=== PATIENT | female | born 1950 | race Caucasian/White ===

== ENCOUNTER 2018-05-18 03:49 | Inpatient (IN) ==
[2018-05-18] MEDS ORDERED: 0.9 % Sodium Chloride 1,000 ML IVC ONE (04:33)
[2018-05-18] MEDS ORDERED: *HR* Promethazine 25 MG/ML VIAL IVP ONE (04:33)
--- NOTE | 2018-05-18 04:37 | Emergency Department Note ---
Disposition Clinical Impression: Dizziness, Electrolyte abnormality, Elevated troponin Disposition: Admitted As Inpatient Condition: Fair Referrals: Quintin Lowry MD [Primary Care Provider] - Forms: ED Satisfaction Letter Time of Disposition: 07:42 General Adult HPI - General Chief complaint: ED Nausea/Vomiting/Diarrhea Stated complaint: n/v, dizzy Time Seen by Provider: 05/18/18 03:53 Source: patient Mode of arrival: ambulatory Limitations: no limitations Nursing Notes Reviewed: Yes Vital Signs Reviewed: Yes - History of Present Illness HPI Narrative: Patient is a 67-year-old female with a past medical history of diabetes, hypertension, and 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 The patient states her symptoms started 2 weeks ago when she was having multiple episodes of encounter urine where she was trying to make it to the restroom and could not make it there and time. She was initially seen at this ER in [place] and diagnosed with UTI and started on Bactrim. One week ago her symptoms were not improving since she is seen by her primary care physician and she was switched to doxycycline. The patient states that her urinary symptoms have improved since then, however she states that she has not been able to keep any food down since Tuesday. She states that she has had multiple episodes of emesis that are nonbloody and nonbilious. She denies any fevers, chills, chest pain, shortness of breath, abdominal pain, flank pain or diarrhea. She has a description 38 Shar[address] Mendez at home this medication as been unsuccessful in treating her nausea and vomiting. States she thinks she just needs hydration and her nausea fixed. Pain Scale: 8 - Related Data Home Medications Medication Instructions Recorded Confirmed Furosemide [Lasix] 20 mg PO DAILY 01/31/16 05/18/18 Ustekinumab [STELARA (For 90 mg SQ Q90D 01/31/16 05/18/18 Outpatient Infusion)] Venlafaxine HCl [Venlafaxine HCl 37.5 mg PO DAILY 01/31/16 05/18/18 ER] Rosuvastatin Calcium [Crestor] 10 mg PO DAILY 07/21/16 05/18/18 Cranberry Conc/Ascorbic Acid 1 each PO DAILY 08/30/16 05/18/18 [Cranberry Plus Vitamin C Sftgl] Denosumab [Prolia (For Outpatient 60 mg IV Q180D 10/17/16 07/05/18 Infusion)] Ergocalciferol (VITAMIN D2) 800 unit PO DAILY 08/30/16 05/18/18 [Vitamin D] Multivit-Minerals/Folic/Ginkgo 1 each PO DAILY 08/30/16 05/18/18 [One Daily For Women 50+ Adv Tb] [place]-3 Fatty Acids [Fish Oil] 900 mg PO DAILY 08/30/16 05/18/18 Allopurinol [Zyloprim 100 MG] 100 mg PO DAILY 05/18/18 05/18/18 Doxycycline Hyclate [Vibramycin] 100 mg PO BID 05/18/18 05/18/18 Metoprolol Succinate [Toprol Xl] 25 mg PO DAILY 05/18/18 05/18/18 Ondansetron ODT [Zofran ODT] 4 mg SL Q8HR 05/18/18 05/18/18 Previous Rx's Medication Instructions Recorded Acetaminophen [Tylenol] 325 mg PO Q6HR PRN #10 tablet 11/15/16 Fluticasone Propionate Nasal 2 spray NS DAILY #1 bottle 11/15/16 [Flonase] Allergies Allergy/AdvReac Type Severity Reaction Status Date / Time No Known Allergies Allergy Verified 05/18/18 03:52 All systems ED: reviewed and negative except as stated. Review of Systems: As Per HPI Constitutional: Denies: fever, chills Cardiovascular: Denies: chest pain, palpitations Respiratory: Denies: cough, dyspnea, wheezes Gastrointestinal: Reports: nausea, vomiting. Denies: abdominal pain, diarrhea, constipation, hematemesis, melena Genitourinary: Denies: urgency, dysuria, frequency, hematuria Past Medical History - Past Medical History Attestation: Yes The following information was validated with the patient. Medical history: Reports: osteoporosis Surgical history: Reports: hysterectomy Psychiatric history: Reports: depression - Social History Smoking Status: Never smoker Smokeless Tobacco Status: No Alcohol use: Reports: none Drug use: Reports: none Physical Exam CONSTITUTIONAL: Well-appearing; well-nourished; A&O X 3, in no apparent distress. Patient is borderline hypotensive in the systolic 110s. Other vitals are within normal limits. HEAD: Normocephalic; atraumatic EYES: PERRL, no scleral icterus NOSE: The nose is normal in appearance without rhinorrhea NECK: No JVD or distended neck veins RESP: Normal chest excursion with respiration; breath sounds clear and equal bilaterally; no wheezes, rhonchi, or rales CARD: Regular rhythm, without murmurs, rub or gallop ABD: Non-distended; non-tender, soft, without rigidity, rebound or guarding,no pulsatile mass CHEST: No pain with palpation SKIN: Normal for age and race; warm and dry without diaphoresis ; no apparent lesions EXTREMITIES: Pulses are 2 plus and equal times 4 extremities, no peripheral edema or calf muscle pain - General Limitations: no limitations General appearance: alert, in no apparent distress Course Course Narrative: Plan is times work the patient up for generalized weakness associated with nausea and vomiting. We will perform a cardiac workup including a chest x-ray, EKG and troponin. We will also check baseline labs for lateral at abnormalities and as well as urine determine her urinary tract infection assess Singh being treated. Patient also received IV hydration as well as IV antiemetic while waiting for lab results Reevaluate the patient. - Reevaluation(s) Reevaluation #1: Patient's symptoms improved with the Antivert and Valium. She had potassium replacement while in the ED plan is to admit her to the hospitalist for further fluids and treatment of her a And trending of her troponin. I discussed this with the hospitalist on-call he agrees. Time: 07:42 Vital Signs Temperature 97.8 F 05/18/18 03:50 Pulse Rate 87 05/18/18 03:50 Respiratory Rate 20 05/18/18 03:50 Blood Pressure 93/62 05/18/18 03:50 O2 Sat by Pulse Oximetry 96 05/18/18 03:50 Temperature 97.8 F 05/18/18 03:50 Pulse Rate 74 05/18/18 07:04 Respiratory Rate 16 05/18/18 07:04 Blood Pressure 130/57 05/18/18 07:04 O2 Sat by Pulse Oximetry 98 05/18/18 07:04 Oxygen Delivery Oxygen Delivery Room Air Medical Decision Making - Medical Records Medical records reviewed: Yes I reviewed the patient's medical records. - Lab Data Lab results reviewed: Yes I reviewed the patient's lab results. Result diagrams: 05/18/18 06:05 05/18/18 04:06 Lab Results 05/18/18 05/18/18 05/18/18 Range/Units 04:06 04:06 04:06 WBC (4.3-11.1) K/mcL RBC (3.82-4.97) M/mcL Hgb (11.5-15.4) g/dL Hct (35.3-44.9) % MCV (83.0-100.0) fL MCH (28.0-33.3) pg MCHC (31.6-35.5) g/dL RDW (11.5-14.5) % Plt Count (140-400) K/mcL MPV (9.4-12.4) fL Immature Gran % (0-4) % Seg Neutrophils % % Lymphocytes % % Monocytes % % Eosinophils % % Basophils % % Neutrophils # (1.6-8.9) K/mcL Lymphocytes # (0.6-4.6) K/mcL Monocytes # (0.0-1.3) K/mcL Eosinophils # (0.0-0.6) K/mcL Basophils # (0.0-0.2) K/mcL Immature Plt Fraction (1.1-6.1) % Sodium 128 L (136-145) mEq/L Potassium 3.0 L (3.5-5.1) mEq/L Chloride 92 L (98-107) mEq/L Carbon Dioxide 23 (23-29) mEq/L BUN 51 H (8-23) mg/dL Creatinine 3.77 H (0.60-1.20) mg/dL Est GFR ( Amer) 14 L (> 60) Est GFR (Non-Af Amer) 12 L (> 60) BUN/Creatinine Ratio 14 (6-26) Glucose 155 H (70-105) mg/dL Calculated Osmolality 283 (280-300) Calcium 9.4 (8.6-10.3) mg/dL Total Bilirubin 0.7 (0.3-1.0) mg/dL AST 120 H (13-39) Units/L ALT 121 H (7-52) Units/L Alkaline Phosphatase 72 (34-104) Units/L Troponin I 0.06 H* (< 0.04) ng/mL Serum Total Protein 6.5 (6.4-8.9) g/dL Albumin 4.1 (3.5-5.7) g/dL Globulin 2.4 (2.4-3.5) g/dL Albumin/Globulin Ratio 1.7 (1.1-2.2) Lipase 127 H (11-82) Units/L Urine Color (Yellow) Urine Clarity (Clear) Urine pH (5.0-8.0) pH Units Ur Specific [place] (1.010-1.025) Urine Protein (Neg-Trace) mg/dL Urine Glucose (UA) (Normal) mg/dL Urine Ketones (Negative) mg/dL Urine Blood (Negative) Urine Nitrite (Negative) Urine Bilirubin (Negative) Urine Urobilinogen (Normal) mg/dL Ur Leukocyte Esterase (Negative) Urine Microscopic RBC (0-3) per hpf Urine Microscopic WBC (0-3) per hpf Ur Squamous Epith Cells (None-Few) per lpf Ur Transition Epith Cell (None-Few) per hpf Ur Renal Epithelial Cell (None-Few) per hpf Urine Bacteria (None-Few) per hpf Hyaline Casts (None-Few) per lpf Ur Culture Indicated? (NO) Specimen Rejected MCV [place] 05/18/18 05/18/18 Range/Units 04:51 06:05 WBC 6.7 (4.3-11.1) K/mcL RBC 3.73 L (3.82-4.97) M/mcL Hgb 11.7 (11.5-15.4) g/dL Hct 33.2 L (35.3-44.9) % MCV 89.0 D (83.0-100.0) fL MCH 31.4 (28.0-33.3) pg MCHC 35.2 (31.6-35.5) g/dL RDW 13.9 (11.5-14.5) % Plt Count 70 L (140-400) K/mcL MPV 12.9 H (9.4-12.4) fL Immature Gran % 0.4 (0-4) % Seg Neutrophils % 54.0 % Lymphocytes % 31.6 % Monocytes % 7.9 % Eosinophils % 5.5 % Basophils % 0.6 % Neutrophils # 3.6 (1.6-8.9) K/mcL Lymphocytes # 2.1 (0.6-4.6) K/mcL Monocytes # 0.5 (0.0-1.3) K/mcL Eosinophils # 0.4 (0.0-0.6) K/mcL Basophils # 0.0 (0.0-0.2) K/mcL Immature Plt Fraction 12.9 H (1.1-6.1) % Sodium (136-145) mEq/L Potassium (3.5-5.1) mEq/L Chloride (98-107) mEq/L Carbon Dioxide (23-29) mEq/L BUN (8-23) mg/dL Creatinine (0.60-1.20) mg/dL Est GFR ( Amer) (> 60) Est GFR (Non-Af Amer) (> 60) BUN/Creatinine Ratio (6-26) Glucose (70-105) mg/dL Calculated Osmolality (280-300) Calcium (8.6-10.3) mg/dL Total Bilirubin (0.3-1.0) mg/dL AST (13-39) Units/L ALT (7-52) Units/L Alkaline Phosphatase (34-104) Units/L Troponin I (< 0.04) ng/mL Serum Total Protein (6.4-8.9) g/dL Albumin (3.5-5.7) g/dL Globulin (2.4-3.5) g/dL Albumin/Globulin Ratio (1.1-2.2) Lipase (11-82) Units/L Urine Color Yellow (Yellow) Urine Clarity Cloudy A (Clear) Urine pH 5.5 (5.0-8.0) pH Units Ur Specific [place] 1.019 (1.010-1.025) Urine Protein 30 H (Neg-Trace) mg/dL Urine Glucose (UA) Normal (Normal) mg/dL Urine Ketones Negative (Negative) mg/dL Urine Blood Negative (Negative) Urine Nitrite Negative (Negative) Urine Bilirubin Negative (Negative) Urine Urobilinogen Normal (Normal) mg/dL Ur Leukocyte Esterase Negative (Negative) Urine Microscopic RBC 0-3 (0-3) per hpf Urine Microscopic WBC 5-15 H (0-3) per hpf Ur Squamous Epith Cells Many H (None-Few) per lpf Ur Transition Epith Cell Few (None-Few) per hpf Ur Renal Epithelial Cell Few (None-Few) per hpf Urine Bacteria None Seen (None-Few) per hpf Hyaline Casts None Seen (None-Few) per lpf Ur Culture Indicated? NO (NO) Specimen Rejected - Radiology Data Radiology results reviewed: Yes I reviewed the patient's radiology results. Chest X-Ray 05/18/18 04:34 IMPRESSION: No acute findings. D/ / Walter Del Toro / Walter Del Toro Interpreting Provider: Walter Del Toro Head CT 05/18/18 05:32 IMPRESSION: No acute intracranial abnormality. D/ / Walter Del Toro / Walter Del Toro Interpreting Provider: Walter Del Toro - EKG Data EKG #1 EKG attestation: Yes I reviewed and interpreted this EKG. EKG results narrative: EKG done at 4:00 shows sinus rhythm at a rate of 83 bpm. Normal axis. No signs of ST elevation, ST depression or Q waves present. Patient does have nonspecific ST and T-wave abnormalities in lead aVL which is seen on old EKG done on 11/03/2011.
[2018-05-18 05:03] LABS: Bilirubin,Urine Negative (Negative); Blood,Urine Negative (Negative); Clarity,Urine Cloudy (Clear); Color,Urine Yellow (Yellow); Glucose,Urine (UA) Normal (Normal); Ketones,Urine Negative (Negative); Leukocyte Esterase,Urine Negative (Negative); Nitrite,Urine Negative (Negative); PH,Urine 5.5 pH Units (5.0-8.0); Protein,Urine 30 mg/dL (Neg-Trace); Specific Gravity,Urine 1.019 (1.010-1.025); Urobilinogen,Urine Normal (Normal)
[2018-05-18 05:04] LABS: Bacteria,Urine None Seen per hpf (None-Few); Hyaline Casts,Urine None Seen per lpf (None-Few); Squamous Epithelial Cell,Urine Many per lpf (None-Few)
[2018-05-18 05:07] LABS: Albumin 4.1 g/dL (3.5-5.7); Albumin/Globulin Ratio 1.7 (1.1-2.2); Bilirubin,Total 0.7 mg/dL (0.3-1.0); Calcium 9.4 mg/dL (8.6-10.3); Globulin 2.4 g/dL (2.4-3.5); Total Protein 6.5 g/dL (6.4-8.9)
[2018-05-18] MEDS ORDERED: Potassium Chloride Elixir 20 MEQ/15 ML UDC PO ONE ×2 (05:11→12:00)
[2018-05-18 05:14] LABS: RBC,Urine 0-3 per hpf (0-3); Renal Epithelial Cells,Urine Few per hpf (None-Few); Transitional Epi Cells,Urine Few per hpf (None-Few)
[2018-05-18] MEDS ORDERED: diazePAM 10 MG/2 ML SYRINGE IVP STA (05:39)
[2018-05-18] MEDS ORDERED: Ondansetron Oral Soln 2 MG/2.5 ML ORAL.SYG PO ONE (06:02)
[2018-05-18 06:12] LABS: Basophils % 0.6 %; Eosinophils # 0.4 K/mcL (0.0-0.6); Eosinophils % 5.5 %; Hematocrit 33.2 % (35.3-44.9); Hemoglobin 11.7 g/dL (11.5-15.4); Immature Granulocytes % 0.4 % (0-4); Immature Platelets 12.9 % (1.1-6.1); Lymphocytes # 2.1 K/mcL (0.6-4.6); Lymphocytes % 31.6 %; Mean Corpuscular HGB Conc 35.2 g/dL (31.6-35.5); Mean Corpuscular Hemoglobin 31.4 pg (28.0-33.3); Mean Platelet Volume 12.9 fL (9.4-12.4); Monocytes # 0.5 K/mcL (0.0-1.3); Monocytes % 7.9 %; Neutrophils # 3.6 K/mcL (1.6-8.9); Red Blood Count 3.73 M/mcL (3.82-4.97); Red Cell Distribution Width 13.9 % (11.5-14.5)
[2018-05-18 06:20] LABS: Platelet Count 70 K/mcL (140-400)
--- NOTE | 2018-05-18 07:19 | Emergency Department Note ---
Disposition Clinical Impression: Dizziness, Electrolyte abnormality, Elevated troponin Disposition: Admitted As Inpatient Condition: Fair Referrals: Quintin Lowry MD [Primary Care Provider] - Forms: ED Satisfaction Letter General Adult HPI - General Chief complaint: ED Nausea/Vomiting/Diarrhea Stated complaint: n/v, dizzy Time Seen by Provider: 05/18/18 03:53 Source: patient Mode of arrival: ambulatory Limitations: no limitations Nursing Notes Reviewed: Yes Vital Signs Reviewed: Yes - History of Present Illness Pain Scale: 8 - Related Data Home Medications Medication Instructions Recorded Confirmed Furosemide [Lasix] 20 mg PO DAILY 01/31/16 05/18/18 Ustekinumab [STELARA (For 90 mg SQ Q90D 01/31/16 05/18/18 Outpatient Infusion)] Venlafaxine HCl [Venlafaxine HCl 37.5 mg PO DAILY 01/31/16 05/18/18 ER] Rosuvastatin Calcium [Crestor] 10 mg PO DAILY 07/21/16 05/18/18 Cranberry Conc/Ascorbic Acid 1 each PO DAILY 08/30/16 05/18/18 [Cranberry Plus Vitamin C Sftgl] Denosumab [Prolia (For Outpatient 60 mg IV Q180D 08/30/16 05/18/18 Infusion)] Ergocalciferol (VITAMIN D2) 800 unit PO DAILY 08/30/16 05/18/18 [Vitamin D] Multivit-Minerals/Folic/Ginkgo 1 each PO DAILY 08/30/16 05/18/18 [One Daily For Women 50+ Adv Tb] [place]-3 Fatty Acids [Fish Oil] 900 mg PO DAILY 08/30/16 05/18/18 Allopurinol [Zyloprim 100 MG] 100 mg PO DAILY 05/18/18 05/18/18 Doxycycline Hyclate [Vibramycin] 100 mg PO BID 05/18/18 05/18/18 Metoprolol Succinate [Toprol Xl] 25 mg PO DAILY 05/18/18 05/18/18 Ondansetron ODT [Zofran ODT] 4 mg SL Q8HR 05/18/18 05/18/18 Previous Rx's Medication Instructions Recorded Acetaminophen [Tylenol] 325 mg PO Q6HR PRN #10 tablet 11/15/16 Fluticasone Propionate Nasal 2 spray NS DAILY #1 bottle 11/15/16 [Flonase] Allergies Allergy/AdvReac Type Severity Reaction Status Date / Time No Known Allergies Allergy Verified 05/18/18 03:52 Constitutional: Denies: fever, chills Cardiovascular: Denies: chest pain, palpitations Respiratory: Denies: cough, dyspnea, wheezes Gastrointestinal: Reports: nausea, vomiting. Denies: abdominal pain, diarrhea, constipation, hematemesis, melena Genitourinary: Denies: urgency, dysuria, frequency, hematuria Past Medical History - Past Medical History Medical history: Reports: osteoporosis Surgical history: Reports: hysterectomy Psychiatric history: Reports: depression - Social History Smoking Status: Never smoker Smokeless Tobacco Status: No Alcohol use: Reports: none Drug use: Reports: none Physical Exam - General Limitations: no limitations General appearance: alert, in no apparent distress Course Vital Signs Temperature 97.8 F 05/18/18 03:50 Pulse Rate 87 05/18/18 03:50 Respiratory Rate 20 05/18/18 03:50 Blood Pressure 93/62 05/18/18 03:50 O2 Sat by Pulse Oximetry 96 05/18/18 03:50 Temperature 97.8 F 05/18/18 03:50 Pulse Rate 74 05/18/18 07:04 Respiratory Rate 16 05/18/18 07:04 Blood Pressure 130/57 05/18/18 07:04 O2 Sat by Pulse Oximetry 98 05/18/18 07:04 Oxygen Delivery Oxygen Delivery Room Air Medical Decision Making - Lab Data Result diagrams: 05/18/18 06:05 05/18/18 04:06 Lab Results 05/18/18 05/18/18 05/18/18 Range/Units 04:06 04:06 04:06 WBC (4.3-11.1) K/mcL RBC (3.82-4.97) M/mcL Hgb (11.5-15.4) g/dL Hct (35.3-44.9) % MCV (83.0-100.0) fL MCH (28.0-33.3) pg MCHC (31.6-35.5) g/dL RDW (11.5-14.5) % Plt Count (140-400) K/mcL MPV (9.4-12.4) fL Immature Gran % (0-4) % Seg Neutrophils % % Lymphocytes % % Monocytes % % Eosinophils % % Basophils % % Neutrophils # (1.6-8.9) K/mcL Lymphocytes # (0.6-4.6) K/mcL Monocytes # (0.0-1.3) K/mcL Eosinophils # (0.0-0.6) K/mcL Basophils # (0.0-0.2) K/mcL Immature Plt Fraction (1.1-6.1) % Sodium 128 L (136-145) mEq/L Potassium 3.0 L (3.5-5.1) mEq/L Chloride 92 L (98-107) mEq/L Carbon Dioxide 23 (23-29) mEq/L BUN 51 H (8-23) mg/dL Creatinine 3.77 H (0.60-1.20) mg/dL Est GFR ( Amer) 14 L (> 60) Est GFR (Non-Af Amer) 12 L (> 60) BUN/Creatinine Ratio 14 (6-26) Glucose 155 H (70-105) mg/dL Calculated Osmolality 283 (280-300) Calcium 9.4 (8.6-10.3) mg/dL Total Bilirubin 0.7 (0.3-1.0) mg/dL AST 120 H (13-39) Units/L ALT 121 H (7-52) Units/L Alkaline Phosphatase 72 (34-104) Units/L Troponin I 0.06 H* (< 0.04) ng/mL Serum Total Protein 6.5 (6.4-8.9) g/dL Albumin 4.1 (3.5-5.7) g/dL Globulin 2.4 (2.4-3.5) g/dL Albumin/Globulin Ratio 1.7 (1.1-2.2) Lipase 127 H (11-82) Units/L Urine Color (Yellow) Urine Clarity (Clear) Urine pH (5.0-8.0) pH Units Ur Specific [place] (1.010-1.025) Urine Protein (Neg-Trace) mg/dL Urine Glucose (UA) (Normal) mg/dL Urine Ketones (Negative) mg/dL Urine Blood (Negative) Urine Nitrite (Negative) Urine Bilirubin (Negative) Urine Urobilinogen (Normal) mg/dL Ur Leukocyte Esterase (Negative) Urine Microscopic RBC (0-3) per hpf Urine Microscopic WBC (0-3) per hpf Ur Squamous Epith Cells (None-Few) per lpf Ur Transition Epith Cell (None-Few) per hpf Ur Renal Epithelial Cell (None-Few) per hpf Urine Bacteria (None-Few) per hpf Hyaline Casts (None-Few) per lpf Ur Culture Indicated? (NO) Specimen Rejected MCV [place] 05/18/18 05/18/18 Range/Units 04:51 06:05 WBC 6.7 (4.3-11.1) K/mcL RBC 3.73 L (3.82-4.97) M/mcL Hgb 11.7 (11.5-15.4) g/dL Hct 33.2 L (35.3-44.9) % MCV 89.0 D (83.0-100.0) fL MCH 31.4 (28.0-33.3) pg MCHC 35.2 (31.6-35.5) g/dL RDW 13.9 (11.5-14.5) % Plt Count 70 L (140-400) K/mcL MPV 12.9 H (9.4-12.4) fL Immature Gran % 0.4 (0-4) % Seg Neutrophils % 54.0 % Lymphocytes % 31.6 % Monocytes % 7.9 % Eosinophils % 5.5 % Basophils % 0.6 % Neutrophils # 3.6 (1.6-8.9) K/mcL Lymphocytes # 2.1 (0.6-4.6) K/mcL Monocytes # 0.5 (0.0-1.3) K/mcL Eosinophils # 0.4 (0.0-0.6) K/mcL Basophils # 0.0 (0.0-0.2) K/mcL Immature Plt Fraction 12.9 H (1.1-6.1) % Sodium (136-145) mEq/L Potassium (3.5-5.1) mEq/L Chloride (98-107) mEq/L Carbon Dioxide (23-29) mEq/L BUN (8-23) mg/dL Creatinine (0.60-1.20) mg/dL Est GFR ( Amer) (> 60) Est GFR (Non-Af Amer) (> 60) BUN/Creatinine Ratio (6-26) Glucose (70-105) mg/dL Calculated Osmolality (280-300) Calcium (8.6-10.3) mg/dL Total Bilirubin (0.3-1.0) mg/dL AST (13-39) Units/L ALT (7-52) Units/L Alkaline Phosphatase (34-104) Units/L Troponin I (< 0.04) ng/mL Serum Total Protein (6.4-8.9) g/dL Albumin (3.5-5.7) g/dL Globulin (2.4-3.5) g/dL Albumin/Globulin Ratio (1.1-2.2) Lipase (11-82) Units/L Urine Color Yellow (Yellow) Urine Clarity Cloudy A (Clear) Urine pH 5.5 (5.0-8.0) pH Units Ur Specific [place] 1.019 (1.010-1.025) Urine Protein 30 H (Neg-Trace) mg/dL Urine Glucose (UA) Normal (Normal) mg/dL Urine Ketones Negative (Negative) mg/dL Urine Blood Negative (Negative) Urine Nitrite Negative (Negative) Urine Bilirubin Negative (Negative) Urine Urobilinogen Normal (Normal) mg/dL Ur Leukocyte Esterase Negative (Negative) Urine Microscopic RBC 0-3 (0-3) per hpf Urine Microscopic WBC 5-15 H (0-3) per hpf Ur Squamous Epith Cells Many H (None-Few) per lpf Ur Transition Epith Cell Few (None-Few) per hpf Ur Renal Epithelial Cell Few (None-Few) per hpf Urine Bacteria None Seen (None-Few) per hpf Hyaline Casts None Seen (None-Few) per lpf Ur Culture Indicated? NO (NO) Specimen Rejected Attestation Statement - Attestation Attestation: I, Miguel Holloway MD, personally evaluated this patient and discussed their management with the resident physician. I reviewed the resident's note and agree with the documented findings, medical decision making, and plan of care. 67-year-old female presents to the emergency department with a complaint of nausea and vomiting for 2 weeks prior to arrival. She also complains of dizziness which she describes as vertigo with the resident and spinning. This has been intermittent. No abdominal pain. No GI bleed symptoms. No diarrhea. On examination patient is a well-developed well-nourished well-appearing elderly female in no acute distress. She is alert and oriented 3. There is no cyanosis or diaphoresis. Breath sounds are clear and equal bilaterally. Heart regular rate and rhythm. Abdomen soft and nontender with normal bowel sounds. Labs reviewed. Acute kidney injury. Chest x-ray negative. Head CT negative. EKG shows a sinus rhythm with ventricular rate of 83. No acute ST segment elevation or depression. No arrhythmia or ectopy. The hospitalist was consulted and accepted admission of the patient.
[2018-05-18] MEDS ORDERED: Naloxone 0.4 MG/ML INJ IVP PRN (07:51)
[2018-05-18] MEDS ORDERED: Acetaminophen 325 MG TABLET PO PRN (08:00)
[2018-05-18] MEDS ORDERED: 0.9 % Sodium Chloride 1,000 ML IVC SCH (08:00)
[2018-05-18 08:40] LABS: Magnesium 2.3 mg/dL (1.6-2.6)
[2018-05-18] MEDS ORDERED: Ondansetron 4 MG/2 ML VIAL IVP PRN (08:57)
--- NOTE | 2018-05-18 08:59 | Internal Med History&Physical ---
Date of Encounter: 05/19/18 Time of Encounter: 09:00 Internal Medicine - H&P: HPI Chief complaint: nausea, vomiting, dizziness of 2 weeks duration History of present illness: Ms. Malhotra is a 67 year old female with pmh of hypertension, osteoporosis presenting with complaints of nausea and vomiting of 2 weeks duration. Patient says her symtpoms started when she went to [facility] and had some salad, but says she didn't eat anything unusual. She has been having dizzziness, nausea and vomiting since. She saw her PCP on tuesday who treated her with bactrim and doxyycline for UTI and an ear infection. She came in for worsening dizziness today. head CT was negative in the Er, she was howeer noted to have electrolyte derangement with low sodium,potassium and elevated creatinine Past Med Surg Social Fam HX - Past Medical History Medical history: osteoporosis Additional medical history: Gout. Squamous Cell Carcinoma Psychiatric history: depression - Past Surgical History Surgical History: hysterectomy Additional surgical history: Bladder Tuck - Social History Smoking Status: Never smoker Smokeless Tobacco Status: No Alcohol use: none Drug use: none - Family History Mother Living Status: Age at : 73 Hx Family Cardiac Disorders: Yes (AL) Hx Family Respiratory Disorders: No Hx Family Cancer: No Hx Family GI Disorders: No Hx Family Genitourinary Disorders: No Hx Family Endocrine Disorder: Yes (DM) Hx Family Musculoskeletal Disorders: No Hx Family Neuromuscular Disorders: No Hx Family Neurologic Disorders: No Hx Family HEENT Disorders: No Hx Family Reproductive Disorders: No Hx Family Psychosocial Disorders: No Hx Family Medical Disorders: No Internal Medicine - H&P: Meds Furosemide [Lasix] 20 mg PO DAILY 01/31/16 [History] Ustekinumab [STELARA (For Outpatient Infusion)] 90 mg SQ Q90D 01/31/16 [History] Venlafaxine HCl [Venlafaxine HCl ER] 37.5 mg PO DAILY 01/31/16 [History] Rosuvastatin Calcium [Crestor] 10 mg PO DAILY 07/21/16 [History] Cranberry Conc/Ascorbic Acid [Cranberry Plus Vitamin C Sftgl] 1 each PO DAILY [History] Denosumab [Prolia (For Outpatient Infusion)] 60 mg IV Q180D 08/30/16 [History] Ergocalciferol (VITAMIN D2) [Vitamin D] 800 unit PO DAILY 08/30/16 [History] Multivit-Minerals/Folic/Ginkgo [One Daily For Women 50+ Adv Tb] 1 each PO DAILY 08/30/16 [History] [place]-3 Fatty Acids [Fish Oil] 900 mg PO DAILY 08/30/16 [History] Acetaminophen [Tylenol] 325 mg PO Q6HR PRN #10 tablet 11/15/16 [Rx] Fluticasone Propionate Nasal [Flonase] 2 spray NS DAILY #1 bottle 11/15/16 [Rx] Allopurinol [Zyloprim 100 MG] 100 mg PO DAILY 05/18/18 [History] Doxycycline Hyclate [Vibramycin] 100 mg PO BID 05/18/18 [History] Metoprolol Succinate [Toprol Xl] 25 mg PO DAILY 05/18/18 [History] Ondansetron ODT [Zofran ODT] 4 mg SL Q8HR 05/18/18 [History] 3 Allergy/AdvReac Type Severity Reaction Status Date / Time No Known Allergies Allergy Verified 05/18/18 03:52 All Systems PM: A 10-system review of systems was performed and is negative for pertinent findings except as documented above in the HPI. - Constitutional Constitutional: no chills, no fever(s), no night sweats - EENT Eyes: no change in vision, no discharge, no pain, no photophobia Ears: no ear discharge, no ear pain, no tinnitus Nose, mouth and throat: no dysphagia, no nasal discharge, no neck pain, no sore throat - Cardiovascular Cardiovascular ROS IM: no chest pain, no diaphoresis, no dyspnea, no lightheadedness, no palpitations, no syncope - Respiratory Respiratory: no cough, no dyspnea, no wheezing, no excessive phlegm production - Gastrointestinal Gastrointestinal: no abdominal pain, no diarrhea, no hematemesis, no hematochezia, no melena, no nausea, no vomiting - Genitourinary Genitourinary: no change in urinary stream, no dysuria, no flank pain, no hematuria - Musculoskeletal Musculoskeletal ROS IM: no numbness, no tingling - Integumentary Integumentary IM: no rash, no unusual bruising - Neurological Neurological ROS: dizziness, no confusion, no convulsions, no focal weakness, no numbness, no tingling, no tremor(s) - Hematologic/Lymphatic Hematologic/Lymphatic: no easy bruising - Constitutional Vitals: Temp Pulse Resp BP Pulse Ox 97.8 F 74 18 113/53 98 05/18/18 03:50 05/18/18 07:04 05/18/18 08:16 05/18/18 08:16 05/18/18 07:04 - Head Head exam: Present: atraumatic, normocephalic - Eye Eye exam: Present: PERRL, conjuntiva pink, sclera anicteric Pupils: Present: PERRL - Neck Neck exam general surgery: Present: supple, trachea midline. Absent: lymphadenopathy - Respiratory Respiratory exam: Present: CTAB. Absent: accessory muscle use, rales, rhonchi, wheezes - Cardiovascular Cardiovascular exam: Present: RRR, +S1, +S2. Absent: diastolic murmur, gallop, rubs, systolic murmur - GI/Abdominal GI/Abdominal exam: Present: normal bowel sounds, soft, no peritoneal signs. Absent: distended, tenderness - Extremities Exam Extremities exam: Present: warm, radial pulses palpable and symmetrical. Absent : calf tenderness, cyanotic, pedal edema - Neurological Exam Neurological exam: Present: CN II-XII intact, oriented X3, no focal deficits. Absent: pronater drift, facial droop, speech deficit - Skin Skin exam: Present: dry, intact Internal Med - H&P Results - Labs CBC & Chem 7: 05/19/18 04:42 05/19/18 04:42 - Assessment and plan (1) Acute kidney injury Current Visit: Yes Status: Acute Assessment and plan: On IV fluids. Creatinine is 3.77 up from baseline of 1.26 (2) Dizziness Current Visit: Yes Status: Acute Assessment and plan: Likely secondary to dehydration. Start on IV fluids. Meclizine prn. Head CT negative (3) Hyponatremia Current Visit: Yes Status: Acute Assessment and plan: On normal saline (4) Hypokalemia Current Visit: Yes Status: Acute Assessment and plan: Potassium has been replaced (5) Dehydration Current Visit: Yes Status: Acute Assessment and plan: IV fluids (6) Sinusitis Current Visit: No Status: Acute Assessment and plan: On doxycycline Qualifiers: Qualified Code(s): J32.9 - Chronic sinusitis, unspecified (7) DVT prophylaxis Current Visit: Yes Status: Acute Assessment and plan: Heparin sc - Time Spent With Patient Total time spent is greater than 50% in coordination of care (as documented) at patient's floor/unit and/or counseling patient:
[2018-05-18] MEDS ORDERED: ASCORBIC ACID PO SCH (09:00)
[2018-05-18] MEDS ORDERED: CRANBERRY PO SCH (09:00)
[2018-05-18] MEDS ORDERED: [UNRECOGNIZED DRUG - OTHER] PO SCH (09:00)
[2018-05-18] MEDS ORDERED: OMEGA PO SCH (09:00)
[2018-05-18] MEDS ORDERED: FATTY ACIDS PO SCH (09:00)
[2018-05-18] MEDS: Venlafaxine XR (24 HR) 37.5 MG CAP.ER.24H PO SCH (10:09)
[2018-05-18] MEDS: Doxycycline 100 MG CAPSULE PO SCH ×2 (10:09→20:11)
[2018-05-18] MEDS: 0.9 % Sodium Chloride 1,000 ML IVC SCH ×2 (10:09→20:11)
[2018-05-18] MEDS: Ondansetron ODT 4 MG TAB.RAPDIS SL SCH ×2 (10:09→15:37)
[2018-05-18] MEDS: Cholecalciferol (D-3) 1,000 UNIT TABLET PO SCH (10:10)
[2018-05-18] MEDS: Metoprolol XL (24 HR) Succ 25 MG TAB.ER.24H PO SCH (10:10)
[2018-05-18] MEDS: Multivit/Ca/Min/Fe/FA 1 TAB TABLET PO SCH (10:10)
[2018-05-18] MEDS: Fluticasone Propionate Nasal 50 MCG/SPRAY BOTTLE NS SCH (11:22)
[2018-05-18] MEDS: *HR* Heparin 5,000 UNIT/ML VIAL SQ SCH (17:48)
[2018-05-19] MEDS: Ondansetron ODT 4 MG TAB.RAPDIS SL SCH ×2 (00:11→08:02)
[2018-05-19 05:12] LABS: Hemoglobin 10.3 g/dL (11.5-15.4)
[2018-05-19 05:14] LABS: Basophils % 0.3 %; Eosinophils # 0.4 K/mcL (0.0-0.6); Eosinophils % 6.8 %; Hematocrit 30.2 % (35.3-44.9); Immature Granulocytes % 0.6 % (0-4); Lymphocytes # 2.9 K/mcL (0.6-4.6); Lymphocytes % 44.1 %; Mean Corpuscular HGB Conc 34.1 g/dL (31.6-35.5); Mean Corpuscular Hemoglobin 31.2 pg (28.0-33.3); Mean Corpuscular Volume 91.5 fL (83.0-100.0); Mean Platelet Volume 12.1 fL (9.4-12.4); Monocytes # 0.5 K/mcL (0.0-1.3); Neutrophils # 2.6 K/mcL (1.6-8.9); Red Cell Distribution Width 14.2 % (11.5-14.5); Segmented Neutrophils % 40.2 %
[2018-05-19 05:28] LABS: Platelet Count 93 K/mcL (140-400)
[2018-05-19 05:32] LABS: Calcium 7.9 mg/dL (8.6-10.3); Phosphorous 2.8 mg/dL (2.7-4.5)
[2018-05-19] MEDS: *HR* Heparin 5,000 UNIT/ML VIAL SQ SCH ×2 (05:32→17:25)
[2018-05-19] MEDS: 0.9 % Sodium Chloride 1,000 ML IVC SCH (05:34)
[2018-05-19 05:53] LABS: Platelet Estimate Decreased (Normal)
[2018-05-19 05:54] LABS: Reactive Lymphocytes Present (Not Present)
[2018-05-19] MEDS: Metoprolol XL (24 HR) Succ 25 MG TAB.ER.24H PO SCH (08:02)
[2018-05-19] MEDS: Doxycycline 100 MG CAPSULE PO SCH (08:02)
[2018-05-19] MEDS: Multivit/Ca/Min/Fe/FA 1 TAB TABLET PO SCH (08:02)
[2018-05-19] MEDS: Cholecalciferol (D-3) 1,000 UNIT TABLET PO SCH (08:02)
[2018-05-19] MEDS: Venlafaxine XR (24 HR) 37.5 MG CAP.ER.24H PO SCH (08:02)
[2018-05-19] MEDS: Fluticasone Propionate Nasal 50 MCG/SPRAY BOTTLE NS SCH (08:06)
--- NOTE | 2018-05-19 10:02 | Electrocardiograph Report ---
[place] [id number] Test Date: 2018-05-18 Pat Name: Koki Malhotra Department: 104 Room: 2A24 Gender: F Medical Payment Poster: DOMINGA : 1950 Requested By: Joby Anthony Order Number: [id number] Reading MD: Akbar Hanson Measurements Intervals Philip Rate: 83 P: 21 WI: 130 QRS: -9 QRSD: 114 T: 89 QT: 391 QTc: 431 Interpretive Statements SINUS RHYTHM LEFT VENTRICULAR HYPERTROPHY AND ST-T CHANGE Poor R wave progression Electronically Signed On 05-19-2018 10:00:08 EDT by Akbar Hanson
[2018-05-19 13:29] LABS: Calcium 8.6 mg/dL (8.6-10.3); Potassium 4.4 mEq/L (3.5-5.1)
[2018-05-19] MEDS: Amoxicillin/Clavulanate 500 MG TABLET PO SCH (17:23)
--- NOTE | 2018-05-19 18:20 | Internal Med Progress Note ---
Date of Encounter: 05/19/18 Time of Encounter: 12:00 - Assessment and plan (1) Sinusitis Current Visit: No Status: Acute Assessment and plan: Has been on doxycycline with some symptom improvement but not resolved Has headache but no more sinus pain. Will switch to Augmentin and have patient take until 05/24 Qualifiers: Sinusitis location: maxillary Qualified Code(s): J01.00 - Acute maxillary sinusitis, unspecified (2) Dizziness Current Visit: Yes Status: Acute Assessment and plan: Due to dehydration. Improved. Meclizine PRN. CT head no significant findings. (3) Hyponatremia Current Visit: Yes Status: Acute Assessment and plan: Resolved but do not want to overcorrect too rapidly NS stopped at this time for oral PO intake. Will monitor BMPs (4) Hypokalemia Current Visit: Yes Status: Resolved Assessment and plan: Resolved (5) Acute kidney injury Current Visit: Yes Status: Acute Assessment and plan: 2/2 dehydration from nausea and vomiting Creatinine improved. Monitor BMPs. IVF held for now. Will resume in AM. - Time Spent With Patient Total time spent is greater than 50% in coordination of care (as documented) at patient's floor/unit and/or counseling patient: - Subjective Interval history: She reports feeling fine. Not well but better. Stated that her sinus pain had resolved but not back to her baseline. - Constitutional Vitals: Temp Pulse Resp BP Pulse Ox 97.5 F L 76 17 127/78 98 05/19/18 16:08 05/19/18 16:08 05/19/18 16:08 05/19/18 16:08 05/19/18 16:08 Exam: General: Alert and oriented Skin: Normal color, no rash, no lesions. HEENT: EOMI, pupils equal, round and reactive. No sinus pain. Cardiovascular: Regular rate, regular rhythm. No murmurs appreciated. Lungs:Normal breath sounds, no wheezes or crackles. Abdomen:Soft, non-tender, no rigidity. Extremities:No deformity, no edema or tenderness, no joint swelling or clubbing. Neurological:Normal cognition, no weakness, no numbness. Rest of the physical exam is non contributory Internal Medicine: Result - Labs CBC & Chem 7: 05/19/18 04:42 05/19/18 12:58 Labs: Short CBC 05/19/18 Range/Units 04:42 WBC 6.5 (4.3-11.1) K/mcL Hgb 10.3 L (11.5-15.4) g/dL Hct 30.2 L (35.3-44.9) % Plt Count 93 L (140-400) K/mcL Neutrophils # 2.6 (1.6-8.9) K/mcL BMP 05/19/18 05/19/18 04:42 12:58 Sodium 137 138 Potassium 4.0 4.4 Chloride 110 H 110 H Carbon Dioxide 20 L 22 L BUN 49 H 49 H Creatinine 2.87 H 2.75 H Glucose 124 H 138 H Calcium 7.9 L 8.6 Consult Discharge Plan - Plan Referrals: Quintin Lowry MD [Primary Care Provider] -
[2018-05-20] MEDS: *HR* Heparin 5,000 UNIT/ML VIAL SQ SCH (05:36)
[2018-05-20 06:34] LABS: Basophils % 0.3 %; Eosinophils # 0.5 K/mcL (0.0-0.6); Eosinophils % 5.1 %; Hematocrit 29.9 % (35.3-44.9); Hemoglobin 9.9 g/dL (11.5-15.4); Immature Granulocytes % 0.4 % (0-4); Lymphocytes # 3.1 K/mcL (0.6-4.6); Lymphocytes % 32.9 %; Mean Corpuscular HGB Conc 33.1 g/dL (31.6-35.5); Mean Corpuscular Hemoglobin 30.3 pg (28.0-33.3); Mean Corpuscular Volume 91.4 fL (83.0-100.0); Mean Platelet Volume 11.1 fL (9.4-12.4); Monocytes # 0.8 K/mcL (0.0-1.3); Monocytes % 8.2 %; Platelet Count 153 K/mcL (140-400); Red Blood Count 3.27 M/mcL (3.82-4.97); Red Cell Distribution Width 14.5 % (11.5-14.5); Segmented Neutrophils % 53.1 %
[2018-05-20 07:01] LABS: Calcium 8.6 mg/dL (8.6-10.3); Potassium 4.6 mEq/L (3.5-5.1)
[2018-05-20 07:19] LABS: Platelet Estimate Slight Decrease (Normal)
[2018-05-20] MEDS ORDERED: 0.9 % Sodium Chloride 1,000 ML IVC SCH (08:15)
[2018-05-20] MEDS ORDERED: Metoprolol XL (24 HR) Succ 50 MG TAB.ER.24H PO SCH (09:00)
[2018-05-20] MEDS: Amoxicillin/Clavulanate 500 MG TABLET PO SCH (09:48)
[2018-05-20] MEDS: Cholecalciferol (D-3) 1,000 UNIT TABLET PO SCH (09:48)
[2018-05-20] MEDS: Multivit/Ca/Min/Fe/FA 1 TAB TABLET PO SCH (09:48)
[2018-05-20] MEDS: Venlafaxine XR (24 HR) 37.5 MG CAP.ER.24H PO SCH (09:48)
[2018-05-20 11:07] VITALS: BP 129/71
[2018-05-20] MEDS: Fluticasone Propionate Nasal 50 MCG/SPRAY BOTTLE NS SCH (11:23)
--- NOTE | 2018-05-20 11:49 | Discharge Summary ---
- NOTES TO OUTPATIENT PROVIDER Notes to Outpatient Provider: JARRELL from severe dehydration. Improved but will need follow up of kidney function. Date of Encounter: 05/20/18 Time of Encounter: 09:00 - Discharge Diagnosis (1) Hyponatremia Priority: Primary Status: Resolved Assessment and Plan: secondary to severe dehydration. Have completely resolved with IVF. No impairment in mental status (2) Sinusitis Priority: Secondary Status: Acute Assessment and Plan: Has been on doxycycline with some symptom improvement but not resolved Has headache but no more sinus pain. Continue Augmentin until 05/24 Qualifiers: Sinusitis location: maxillary Qualified Code(s): J01.00 - Acute maxillary sinusitis, unspecified (3) Hypokalemia Priority: Secondary Status: Resolved Assessment and Plan: GI loss. Resolved. (4) Acute kidney injury Priority: Secondary Status: Acute Assessment and Plan: 2/2 dehydration from nausea and vomiting Creatinine improved. For follow up with PMD. (5) Hypertension Priority: Secondary Status: Chronic Assessment and Plan: BP uncontrolled on home dose of 25 mg metoprolol Increased to 50 mg daily. F/u with PMD for adjustments as needed. Qualifiers: Hypertension type: essential hypertension Qualified Code(s): I10 - Essential (primary) hypertension Hospital course: Ms. Malhotra is a 67 year old female with PMH HTN, Osteroporosis presented to the ED with nausea and vomiting and severely dehydrated. She was found to have JARRELL with elevated creatinine. She has been getting treatment for sinusitis with doxycycline with some improvement but still not feeling very well. Patient was switched to augmentin inpatient and reports feeling well today. Creatining improving and she reports feeling much better. Will discharge home to follow up with PMD. Will need repeat BMP for monitoring of kidney function. Her BP was also elevated on 25mg of metoprolol and dose was increased to 50 mg daily. Discharge discussed with: patient, family, nurse - Time Spent with Patient Total time spent providing and/or coordinating discharge services: Greater than 30 minutes - Discharge Medications Prescriptions: Amoxicillin/Clavulanate [Augmentin] 500 mg PO BIDWM 5 Days #10 tablet Metoprolol XL (24 HR) Succ [Toprol Xl] 50 mg PO DAILY 30 Days #30 tab.er.24h Home Medications: Furosemide [Lasix] 20 mg PO DAILY 01/31/16 [History] Ustekinumab [STELARA (For Outpatient Infusion)] 90 mg SQ Q90D 01/31/16 [History] Venlafaxine HCl [Venlafaxine HCl ER] 37.5 mg PO DAILY 01/31/16 [History] Rosuvastatin Calcium [Crestor] 10 mg PO DAILY 07/21/16 [History] Cranberry Conc/Ascorbic Acid [Cranberry Plus Vitamin C Sftgl] 1 each PO DAILY [History] Denosumab [Prolia (For Outpatient Infusion)] 60 mg IV Q180D 08/30/16 [History] Ergocalciferol (VITAMIN D2) [Vitamin D] 800 unit PO DAILY 08/30/16 [History] Multivit-Minerals/Folic/Ginkgo [One Daily For Women 50+ Adv Tb] 1 each PO DAILY 08/30/16 [History] [place]-3 Fatty Acids [Fish Oil] 900 mg PO DAILY 08/30/16 [History] Acetaminophen [Tylenol] 325 mg PO Q6HR PRN #10 tablet 11/15/16 [Rx] Fluticasone Propionate Nasal [Flonase] 2 spray NS DAILY #1 bottle 11/15/16 [Rx] Allopurinol [Zyloprim 100 MG] 100 mg PO DAILY 05/18/18 [History] Ondansetron ODT [Zofran ODT] 4 mg SL Q8HR 05/18/18 [History] Amoxicillin/Clavulanate [Augmentin] 500 mg PO BIDWM 5 Days #10 tablet 05/20/18 [ Rx] Metoprolol XL (24 HR) Succ [Toprol Xl] 50 mg PO DAILY 30 Days #30 tab.er.24h 05/31 [Rx] Allergies/Adverse Reactions: 3 Allergy/AdvReac Type Severity Reaction Status Date / Time No Known Allergies Allergy Verified 05/18/18 03:52 Date of admission: 05/18/18 12:28 Primary care physician: Quintin Lowry MD - Constitutional Vitals: Temp Pulse Resp BP Pulse Ox 98.4 F 71 16 129/71 95 05/20/18 11:06 05/20/18 11:06 05/20/18 11:06 05/20/18 11:06 05/20/18 11:06 Exam: General: Alert and oriented Skin: Normal color, no rash, no lesions. HEENT: EOMI, pupils equal, round and reactive. No sinus pain. Cardiovascular: Regular rate, regular rhythm. No murmurs appreciated. Lungs:Normal breath sounds, no wheezes or crackles. Abdomen:Soft, non-tender, no rigidity. Extremities:No deformity, no edema or tenderness, no joint swelling or clubbing. Neurological:Normal cognition, no weakness, no numbness. Rest of the physical exam is non contributory - Patient Status Disposition: Home, Self-Care Overall status at discharge: patient is progressing back to baseline - Discharge Instructions Follow Up With: Quintin Lowry MD [Primary Care Provider] - - Diet and Activity Activity: resume usual activities as tolerated
== END 2018-05-20 13:05 | disposition home or self-care (01) | DRG 683 ==
LOC: EMEROO 03:49 → 2ANU 08:00 → INTOOBSV 08:00 → 2ANU 08:59 → SUATTDRO 12:28
PROVIDERS: ADMIT Student in an Organized Health Care Education/Training Program; ATTEND Student in an Organized Health Care Education/Training Program